=== PATIENT | female | born 1940 | race Caucasian/White ===

== ENCOUNTER 2018-08-04 10:42 | Inpatient (IN) | payer MEDICARE | END 2018-08-06 11:55 | disposition home or self-care (01) | LOC: EDH 10:42 → EDHIP 12:45 → 3BH 19:05 | DX: N17.9 Acute kidney failure, unspecified (principal); I10 Essential (primary) hypertension; E11.65 Type 2 diabetes mellitus with hyperglycemia; I25.10 Atherosclerotic heart disease of native coronary artery without angina pectoris; Z95.1 Presence of aortocoronary bypass graft; S80.12XA Contusion of left lower leg, initial encounter; E86.9 Volume depletion, unspecified ==